=== PATIENT | male | born 1990 ===

== ENCOUNTER 2018-06-21 14:12 | Emergency (ER) | payer OTHER ==
[~2018-06-21] VITALS: Ht 172.7 cm; Wt 65.8 kg
--- OUTSIDE RECORDS SUMMARY | 2018-06-21 14:26 | XMS REPORT | Continuity of Care Document ---
Author Author [facility] Address Unknown Phone Unavailable Allergies There is no data. Medications There is no data. Problems There is no data. Procedures There is no data. Results There is no data. Encounters There is no data.
[2018-06-21] MEDS ORDERED: SERT100T8 (14:33)
--- NOTE | 2018-06-21 14:43 | ED GI ---
General Chief Complaint: Rect Problems Stated Complaint: ABD PAIN AFTER SPICY FOOD Nursing Triage Note: PT REPORTS HE ATE SPICY FOOD TODAY AND SHORTLY AFTER HE HAD RECTAL PAIN AFTER HAVING A STOOL AND HE REPORTS "SMALL" AMOUNT OF BLOOD IN HIS STOOL. PT REPORTS THIS HAS HAPPENED BEFORE BUT HE HAS NEVER SEEN A DR FOR IT. 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 He states that he normally notes this after passing a hard stool or straining. He denies having hemorrhoids that he is aware of. He states the blood is usually dark red. He's had no previous workup for this, although he states it has been present intermittently over the last year. He denies previous colonoscopy. Timing/Duration: Intermittent Associated Symptoms: Denies Symptoms Allergies and Home Medications Home Medications Hydrocortisone Acetate 30 Mg Supp.rect, 30 MG RC Q12H Prescribed by: JOSE D CHAU on 06/21/18 4626 Patient Home Medication List Home Medication List Reviewed: Yes Review of Systems Review of Systems Constitutional: no symptoms reported, see HPI Gastrointestinal: See HPI, Blood Streaked Stools, Rectal Bleeding, Other ( rectal pain) All Other Systems Reviewed Negative Unless Noted: Yes Past Djyiuhr-Reugzt-Ssvmyo Hx Past Med/Social Hx: Reviewed Nursing Past Med/Soc Hx Patient Social History Alcohol Use: Occasionally Uses Recreational Drug Use: Yes Smoking Status: Current Everyday Smoker Type Used: Cigarettes Recent Foreign Travel: No Contact w/Someone Who Travel: No Recent Infectious Disease Expo: No Recent Hopitalizations: No Physical Abuse: No Sexual Abuse: No Mistreated: No Fear: No Seasonal Allergies Seasonal Allergies: No Past Medical History Surgeries: No Respiratory: No Cardiac: No Neurological: No Genitourinary: No Gastrointestinal: No Musculoskeletal: No Endocrine: No HEENT: No Cancer: No Psychosocial: Yes Depression Integumentary: No Blood Disorders: No Adverse Reaction/Blood Tranf: No Physical Exam Vital Signs Vital Signs - First Documented 06/21/18 14:26 Temp 97.6 Pulse 72 Resp 18 B/P (MAP) 119/82 (94) Pulse Ox 100 Capillary Refill : Less Than 3 Seconds Height/Weight/BMI Height: 5'8.00" Weight: 145lbs. oz. [id number]; BMI Method:Stated General Appearance: WD/WN, no apparent distress Respiratory: chest non-tender, lungs clear, normal breath sounds Cardiovascular: normal peripheral pulses, regular rate, rhythm Gastrointestinal: normal bowel sounds, non tender, soft Rectal: normal rectal tone; No black stool, No blood streaked stool; hemorrhoids; No mass; tenderness Neurologic/Psychiatric: no motor/sensory deficits, alert, normal mood/affect, oriented x 3 Skin: normal color, warm/dry Progress/Results/Core Measures Results/Orders Vital Signs/I&O 06/21/18 06/21/18 14:26 15:23 Temp 97.6 Pulse 72 80 Resp 18 20 B/P (MAP) 119/82 (94) 112/87 (95) Pulse Ox 100 98 Blood Pressure Mean: 94 Departure Impression Primary Impression: Hemorrhoids Qualified Codes: K64.1 - Second degree hemorrhoids Disposition: 01 HOME, SELF-CARE Condition: Improved Departure-Patient Inst. Decision time for Depature: 14:55 Patient Instructions: Hemorrhoids (DC) Add. Discharge Instructions: Increase water intake. Take Dulcolax stool softener, 1 tablet twice daily. Use suppositories as prescribed. Follow-up at [facility] after the holidays. Increase fruits and vegetables in your diet. Return to the emergency department for new, urgent health care problems. All discharge instructions reviewed with patient and/or family. Voiced understanding. Scripts Hydrocortisone Acetate (Hydrocortisone Acetate) 30 Mg Supp.rect 30 MG RC Q12H, #20 SUPP.RECT 0 Refills Prov: JOSE D CHAU 06/21/18 Copy Copies To 1: MARY BUENROSTRO MD, AMY ARNP Jun 21, 2018 14:43
[2018-06-21] MEDS ORDERED: HYDR30SU3 RC (14:58)
[2018-06-21 15:23] VITALS: BP 112/87
== END 2018-06-21 15:23 | disposition home or self-care (01) ==
LOC: ER 14:13
DX: K64.9 Unspecified hemorrhoids (principal); F32.9 Major depressive disorder, single episode, unspecified; F17.210 Nicotine dependence, cigarettes, uncomplicated
CPT/HCPCS: 99282